=== PATIENT | female | born 1975 | race Caucasian/White ===

== ENCOUNTER 2016-09-07 10:36 | Emergency (ER) | payer MEDICAID, OTHER ==
[~2016-09-07] VITALS: Wt 77.5 kg
[2016-09-07 12:15] LABS: ADD UMIC YES; URINE BILIRUBIN (Dip) NEGATIVE (NEGATIVE); URINE BLOOD (Dip) 3+ (NEGATIVE); URINE COLOR LT. YELLOW (YELLOW); URINE GLUCOSE (Dip) NEGATIVE (NEGATIVE); URINE KETONES (Dip) TRACE (NEGATIVE); URINE LEUKOCYTE ESTERASE (Dip) TRACE (NEGATIVE); URINE NITRITE (Dip) NEGATIVE (NEGATIVE); URINE TOTAL PROTEIN (Dip) NEGATIVE (NEGATIVE); URINE UROBILINOGEN (Dip) 0.2 E.U./dL (0.1-1.0)
[2016-09-07 12:21] LABS: BASOPHIL # 0.1 10^3/ul (0.0-0.1); BASOPHILS % 0.6 % (0.0-2.0); EOSINOPHILS # 0.1 10^3/ul (0.0-0.5); EOSINOPHILS % 1.2 % (0.0-7.0); HEMATOCRIT 42.5 % (37.0-47.0); HEMOGLOBIN 14.5 g/dl (12.0-16.0); LYMPHOCYTES # 3.1 10^3/ul (0.8-2.9); LYMPHOCYTES % 24.9 % (15.0-51.0); MEAN CORPUSCULAR HEMOGLOBIN 28.3 pg (29.0-33.0); MEAN CORPUSCULAR VOLUME 83.1 fl (82.0-101.0); MEAN PLATELET VOLUME 8.9 fl (7.4-10.4); MONOCYTE # 0.5 10^3/ul (0.3-0.9); MONOCYTES % 4.2 % (0.0-11.0); NEUTROPHIL # 8.5 10^3/ul (1.6-7.5); NEUTROPHILS % 69.1 % (39.0-77.0); PLATELET COUNT 284 10^3/UL (140-440); RED BLOOD COUNT 5.11 10^6/ul (4.20-5.40); RED CELL DISTRIBUTION WIDTH 13.2 % (11.5-14.5); UNCORRECTED WBC 12.3 10^3/ul (4.8-10.8); WHITE BLOOD COUNT 12.3 10^3/ul (4.8-10.8)
[2016-09-07 12:25] LABS: BACTERIA,URINE MODERATE
[2016-09-07 12:31] LABS: CONDITION 1
--- NOTE | 2016-09-07 12:36 | RADRPT ---
PROCEDURE: US OB. CLINICAL INDICATION: Vaginal bleeding TECHNIQUE: Transabdominal and transvaginal views of the pelvis are available for review. COMPARISON: No prior studies are available for comparison. FINDINGS: There is a 1.6 x 1.9 cm hypoechoic mass in the anterior uterus, suspicious for a fibroid. There is a single intrauterine gestation with the crown-rump length measuring 0.9 cm, corresponding to a gestational age of 6 weeks and 6 days. The heart tones are absent. The ovaries are normal in size and echogenicity. Normal Doppler flow is identified in both ovaries. The right ovary measures 2.2 x 1.6 x 1.5 cm. The left ovary measures 2.6 x 1.7 x 1.3 cm. There is no free fluid. RPTAT: AA IMPRESSION: Single intrauterine with an estimated gestational age of 6 weeks and 6 days, based on ultr asound measurements. heart tones are absent, suspicious for demise. Close follow-up ultrasound and HCG is recommended. Small anterior uterine fibroid. .Neno Ruggiero MD, MD Date Time Electronically viewed and signed by .Neno Ruggiero MD, on 09/07/2016 12:36 .S/
[2016-09-07] MEDS ORDERED: CEPH-443 PO (13:11)
--- NOTE | 2016-09-07 13:42 | ERD ---
ER Documentation Chief Complaint Date/Time DATE: 09/07/16 TIME: 13:37 Chief Complaint VAG BLEED SINCE LAST NIGHT. 5 WKS PREG. LOW ABDOMINAL CRAMPING. HPI Patient is a 40-year-old female who is who presents to the ED with vaginal bleeding and pelvic pain. She states that she started bleeding 2 days ago. Light bleeding and has used 1 pad for the whole day. She states she has an OB doctor that she is following. She states her LNMP was 06/21/2016. Denies dysuria or urgency. Denies abdominal pain, nausea, vomiting or diarrhea. Denies leg pain or swelling. Denies chest pain, shortness of breath or difficulty breathing. Denies headache or dizziness. No other complaints. ROS All systems reviewed and are negative except as per history of present illness. Medications Home Meds Active Scripts Cephalexin* (Keflex*) 500 Mg Capsule, 500 MG PO BID for 7 Days, CAP Prov:WILLIAM PAULA PA-C 09/07/16 Allergies Allergies: Coded Allergies: No Known Allergy (Verified Allergy, Unknown, 12/11/08) PMhx/Soc History of Surgery: Yes (casesarian section) Anesthesia Reaction: No Hx Neurological Disorder: No Hx Respiratory Disorders: No Hx Cardiac Disorders: No Hx Psychiatric Problems: No Hx Miscellaneous Medical Probl: No Hx Alcohol Use: No Hx Substance Use: No Hx Tobacco Use: No Smoking Status: Never smoker Physical Exam Vitals Vital Signs Date Time Temp Pulse Resp B/P Pulse Ox O2 Delivery O2 Flow Rate FiO2 09/07/16 10:38 98.6 84 20 123/78 100 Physical Exam GENERAL: Well-developed, well-nourished female. Appears in no acute distress. LUNG: Clear to auscultation bilaterally. No rhonchi, wheezing, rales or coarse breath sounds. HEART: Regular rate and rhythm. No murmurs, rubs or gallops. ABDOMEN: No scars, ecchymosis or rashes noted. Soft, nontender, and nondistended. Positive bowel sounds in all four quadrants. No rebound tenderness , no guarding. (-) McBurneys point tenderness. No CVA tenderness. BACK: No midline tenderness. Extremities: Equal pulses bilaterally. No peripheral clubbing, cyanosis or edema. No unilateral leg swelling. NEUROLOGIC: Alert and oriented. Moving all four extremities. 5/5 strength in all extremities. Normal speech. Steady gait. SKIN: Normal color. Warm and dry. No rashes or lesions. Capillary refill < 2 seconds Result Diagram: 09/07/16 1158 Results 24 hrs Laboratory Tests Test 09/07/16 11:51 09/07/16 11:58 Urine Bacteria MODERATE Urine Bilirubin NEGATIVE Urine Clarity CLEAR Urine Color LT. YELLOW Urine Epithelial Cells MODERATE Urine Glucose NEGATIVE% Urine Hemoglobin 3+ Urine Ketones TRACE Urine Leukocyte Esterase TRACE Urine Microscopic RBC 2-5/HPF Urine Microscopic WBC 0-2/HPF Urine Nitrite NEGATIVE Urine Specific [place] 1.010 Urine Total Protein NEGATIVE Urine Urobilinogen 0.2 E.U./dL Urine pH 6.0 Basophils # 0.110^3/ul Basophils % 0.6% Beta HCG, Quantitative 5299.2mIU/ml Blood Morphology Comment Eosinophils # 0.110^3/ul Eosinophils % 1.2% Hematocrit 42.5% Hemoglobin 14.5g/dl Lymphocytes # 3.110^3/ul Lymphocytes % 24.9% Mean Corpuscular Hemoglobin 28.3pg Mean Corpuscular Hemoglobin Concent 34.0g/dl Mean Corpuscular Volume 83.1fl Mean Platelet Volume 8.9fl Monocytes # 0.510^3/ul Monocytes % 4.2% Neutrophils # 8.510^3/ul Neutrophils % 69.1% Nucleated Red Blood Cells # 0.010^3/ul Nucleated Red Blood Cells % 0.0/100WBC Platelet Count 13822^3/UL Red Blood Count 5.1110^6/ul Red Cell Distribution Width 13.2% White Blood Count 12.310^3/ul Procedures/MDM ER COURSE: I kept the patient and/or family informed of laboratory and diagnostic imaging results throughout the emergency room course. EKG, MONITORS, & DIAGNOSTIC IMAGING: [place] [id number] Radiology Main Line: [phone] DIAGNOSTIC IMAGING REPORT Patient: AGGIE TSAI : 1975 Age: 40 Sex: F MR #: [id number] DOS: 09/07/16 1145 Ordering MD: WILLIAM APULA PA-C Location: [facility] Room/Bed: PROCEDURE: US OB. CLINICAL INDICATION: Vaginal bleeding TECHNIQUE: Transabdominal and transvaginal views of the pelvis are available for review. COMPARISON: No prior studies are available for comparison. FINDINGS: There is a 1.6 x 1.9 cm hypoechoic mass in the anterior uterus, suspicious for a fibroid. There is a single intrauterine gestation with the crown-rump length measuring 0.9 cm, corresponding to a gestational age of 6 weeks and 6 days. The heart tones are absent. The ovaries are normal in size and echogenicity. Normal Doppler flow is identified in both ovaries. The right ovary measures 2.2 x 1.6 x 1.5 cm. The left ovary measures 2.6 x 1.7 x 1.3 cm. There is no free fluid. RPTAT: AA IMPRESSION: Single intrauterine with an estimated gestational age of 6 weeks and 6 days, based on ultrasound measurements. heart tones are absent, suspicious for demise. Close follow-up ultrasound and HCG is recommended. Small anterior uterine fibroid. .Neno Ruggiero MD, MD Date Time Electronically viewed and signed by .Neno Ruggiero MD, MD on 09/07/2016 12: 36 .S/ CC: WILLIAM PAULA PA-C LAB INTERPRETATION: CBC showed no evidence of severe anemia. WBC of 12.3. UA showed no evidence of , nitrites or hematuria, showed trace leukocytes. C Rh: B+ MEDICAL DECISION MAKING: This is a 40-year-old female who presents with and vaginal bleeding and pelvic pain. Vital signs were reviewed. Patient is afebrile. Patient is not hypoxic. Patient is not toxic or ill-appearing. Patient's ultrasound is read by radiologist shows a single intrauterine with an estimated gestational age of 6 weeks and 6 days. heart tones are absent suspicious for demise. Small anterior uterine fibroid. Low suspicion for ovarian torsion, PID, tuboovarian abscess, ectopic , bowel obstruction, pyelonephritis, UTI, appendicitis, cervicitis, septic , molar , HELLP syndrome, preeclampsia, eclampsia, placenta previa, placenta abruptia. DISCHARGE: At this time, patient is stable for discharge and outpatient management with no new complaints during the ER course. Patient was sent home with Keflex and to follow-up with her OB doctor and to return to the ER in 2 days for recheck of ultrasound and beta hCG levels.. Patient will be discharged home with instructions to recheck for new or worsening symptoms such as fever, nausea, weakness, LOC and to follow up with primary care in the next 1-2 days. Patient was advised to return to the ER for any new or worsening symptoms. Plan was discussed and patient and/or family understands and agrees. Home instructions were given. Departure Diagnosis: Primary Impression: Vaginal bleeding in patient at less than 20 weeks ges... Condition: Stable Patient Instructions: Bleeding During Early Referrals: DOCTOR,NOT ON STAFF (PCP) Additional Instructions: Llame al doctor MAANA y melvin judy JOELLEN PARA DENTRO DE 1-2 TAYLOR.Dgale a la secretaria que nosotros le instruimos hacer esta joellen.Avise o llame si vizcarra condicin se empeora antes de la joellen. Regresa aqui si peor o no mejor. Sigue aqui en 2 taylor para rechequar vizcarra ultrasonida y niveles de hormone. WILLIAM PAULA PA-C Sep 07, 2016 13:42
== END 2016-09-07 13:25 | disposition home or self-care (01) ==
LOC: FTE 10:36
DX: O20.9 Hemorrhage in early pregnancy, unspecified (principal); R10.2 Pelvic and perineal pain; Z3A.01 Less than 8 weeks gestation of pregnancy
CPT/HCPCS: 36415; 76801; 76817; 81001; 81003; 84702; 85025; 86900; 86901; Z7502

== ENCOUNTER 2019-03-04 07:42 | Day surgery (SDC) | payer MEDICAID, OTHER ==
[~2019-03-04] VITALS: Ht 149.9 cm; Wt 78.4 kg
[2019-03-04] VITALS (11 sets, daily range): BP systolic 96–113; BP diastolic 58–74; PULSE 65–102; RESP 15–24; Ht 149.9 cm; Wt 78.4 kg
[~2019-03-04 07:42] MED LIST: CEPH-443 PO
[2019-03-04] MEDS ORDERED: CEFAZOLIN 2 GM/50 ML (PMX) 50 ML IVPB ONE (08:00)
[2019-03-04] MEDS ORDERED: SOD CHLORIDE 0.9% 1,000 ML IV SCH (08:00)
--- NOTE | 2019-03-04 12:25 | PREAC ---
Date/Time of Note Date/Time of Note DATE: 03/04/19 TIME: 12:24 Anesthesia Eval and Record Evaluation Time Pre-Procedure Interview DATE: 03/04/19 TIME: 12:24 Age 43 Sex female NPO: 8 hrs Preoperative diagnosis right axillary mass Planned procedure excision of right axillary mass Past Medical History Past Medical History: Includes Cardio: HTN Musculoskeletal: Osteoarthritis GI: Obesity Surgery & Anesthesia Issues No known issue Meds Anticoagulation: No Beta Emelia within 24 hr: No Reason Beta Emelia not given: Pt. not on B-Emelia Discontinued Scripts Cephalexin* (Keflex*) 500 Mg Capsule, 500 MG PO BID for 7 Days, CAP Prov:WILLIAM PAULA PA-C 09/07/16 Current Medications Sodium Chloride 1,000 ml @ 75 mls/hr [id number] IV Last administered on 03/04/19at 10:50; Admin Dose 75 MLS/HR; Start 03/04/19 at 08:00 Meds reviewed: Yes Allergies Coded Allergies: No Known Allergy (Verified , 03/04/19) Allergies Reviewed: Yes Labs/Studies Labs Reviewed: Reviewed by anesthesiologist test: Negative Pre-procedure Exam Last vitals Vital Signs Date Temp Pulse Resp B/P (MAP) Pulse Ox O2 O2 Flow FiO2 Time Delivery Rate 03/04/19 97.6 65 16 113/ 99 Room Air 10:42 Airway: Adequate mouth opening, Adequate thyromental dist Mallampati: Mallampati II Teeth: Normal Lung: Normal Heart: Normal ASA Physical Status ASA physical status: 2 Emergency: None Planned Anesthetic General/MAC: LMA Planned Pain Management Parenteral pain med Pre-operative Attestations Prior to commencing anesthesia and surgery, the patient was re-evaluated, there was verification of: *The patient's identity *The results of appropriate recent lab work and preoperative vital signs *The above evaluation not changing prior to induction *Anesthetic plan, risk benefits, alternative and complications discussed with patient/family; questions answered; patient/family understands, accepts and wishes to proceed. MERCED OVIEDO Mar 04, 2019 12:25
[2019-03-04] MEDS ORDERED: BUPIVACAINE 0.25%/EPI (SDV) 10 ML INJ ONE (12:34)
[2019-03-04] MEDS ORDERED: BUPIVACAINE 0.5%/EPI (SDV) 30 ML INJ ONE (12:34)
[2019-03-04] MEDS ORDERED: PROPOFOL 100 ML ONE (12:46)
[2019-03-04] MEDS ORDERED: LIDOCAINE 2% (SDV) 5 ML INJ ONE (12:48)
[2019-03-04] MEDS ORDERED: CEFAZOLIN 1 GM INJ ONE (13:10)
[2019-03-04] MEDS ORDERED: ONDANSETRON 4 MG INJ ONE (13:25)
[2019-03-04] MEDS ORDERED: DEXAMETHASONE 4 MG/ML 5 ML INJ ONE (13:25)
[2019-03-04] MEDS ORDERED: ONDANSETRON 4 MG INJ IV PRN ×2 (14:00→14:30)
[2019-03-04] MEDS ORDERED: KETOROLAC 30 MG INJ IV PRN ×2 (14:00→14:30)
[2019-03-04] MEDS ORDERED: IBUPROFEN 600 MG TAB PO PRN (14:00)
--- NOTE | 2019-03-04 14:05 | OPR ---
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 She presented to the office as a mass in the right axillary tail which she had been followed with ultrasound had showed rapid increase in size. She reported pain in the area. The patient had an ultrasound which showed increase in size of the axillary tail mass to 2.2 cm. There was also a second mass identified just adjacent to it. Given the above findings the patient was scheduled for elective excision of the right breast masses x2 with wire needle localization for complete excision and definitive pathological diagnosis. All risks and benefits of the procedure including, but not limited to: Wound infection, excessive bleeding, postoperative seroma/hematoma formation, possible need for subsequent surgeries, loss of nipple areolar sensation, etc. were explained to the patient in full detail. She fully understood and wished to proceed with the procedure. Informed consent was obtained. Procedure Description The patient was brought to the operating room and placed supine on the operating table. Bilateral sequential compression devices were placed on both lower extremities. A dose of broad-spectrum perioperative intravenous antibiotics was given. Patient had undergone preoperative wire needle localization. After the induction of smooth general anesthesia the patient's right breast and chest wall were prepped and draped in standard surgical fashion. After performance of the surgical timeout 0.5% Marcaine with epinephrine was injected around the area of the incision. An incision was then made using a 15 blade scalpel from approximately the 7:00 location to the 9:00 location of the right breast in the upper outer quadrant, 9 cm from the areolar border. Incision was carried down through the skin and subcutaneous tissues to the level of breast tissue using sharp dissection and Bovie electrocautery. Flaps were then raised circumferentially. The wire needle was identified. Its external portion was cut. The wire was then delivered through the skin into the field. Circumferential core of tissue was then dissected around the wire down to the level of the chest wall. The specimen was then transected at its base. Marking sutures were used to joselyn the superior and medial aspects. Specimen was then passed off the field. Intraoperative mammography showed the specimen to contain the wire needle, both of the masses and the prior biopsy clips in their entirety. At this point hemostasis was inspected for and noted to be total. The wound cavity was irrigated and the irrigant returned clear. The wound was then closed in layers using interrupted 3-0 Vicryl sutures for the deep breast tissue. The dermal layer was also reapproximated with interrupted 3-0 Vicryl sutures. The skin was then reapproximated using a running 4-0 Monocryl suture in subcuticular fashion. Incision was cleaned and Dermabond was applied. The patient was then awoken from anesthesia and transferred to the recovery room in stable condition. All counts were correct at the end of the case 2. LOLI JORDAN MD Mar 04, 2019 14:05
[2019-03-04] MEDS ORDERED: MEPERIDINE 25 MG INJ ONE (14:13)
--- NOTE | 2019-03-04 14:14 | PAC ---
Date/Time of Note Date/Time of Note DATE: 03/04/19 TIME: 14:14 Post-Anesthesia Notes Post-Anesthesia Note Last documented vital signs Vital Signs Date Temp Pulse Resp B/P (MAP) Pulse Ox O2 O2 Flow FiO2 Time Delivery Rate 03/04/19 97.6 65 16 113/ 99 Room Air 1414 Activity: WNL Respiratory function: WNL Cardiovascular function: WNL Mental status: Baseline Pain reasonably controlled: Yes Hydration appropriate: Yes Nausea/Vomiting absent: Yes MERCED OVIEDO Mar 04, 2019 14:14
[2019-03-04] MEDS ORDERED: EPHEDrine 25 MG/5 ML SYG IV PRN (14:30)
[2019-03-04] MEDS ORDERED: FENTAnyl 50 MCG/ML VIAL IV PRN ×3 (14:30)
[2019-03-04] MEDS ORDERED: ALBUTEROL 0.083% (NEB) 2.5 MG/3 ML AMP HHN PRN (14:30)
[2019-03-04] MEDS ORDERED: LABETALOL HCL 20MG INJ IV PRN (14:30)
[2019-03-04] MEDS ORDERED: MEPERIDINE 25 MG INJ IV PRN (14:30)
[2019-03-04] MEDS ORDERED: MIDAZOLAM 1 MG/ML 2 ML INJ IV PRN (14:30)
[2019-03-04] MEDS ORDERED: hydrALAzine 20 MG INJ IV PRN (14:30)
[2019-03-04] MEDS ORDERED: METOCLOPRAMIDE 10 MG INJ IV PRN (14:30)
[2019-03-04] MEDS ORDERED: DIPHENHYDRAMINE 50 MG INJ IV PRN (14:30)
[2019-03-04] MEDS ORDERED: OXYCODONE/ACETAMINOPHEN (5/325) TAB PO PRN ×2 (14:30)
== END 2019-03-04 16:13 | disposition home or self-care (01) ==
LOC: SUR 07:42 → SDS 07:42 → SUR 16:13
PROVIDERS: ATTEND Surgery
DX: D24.1 Benign neoplasm of right breast (principal); I10 Essential (primary) hypertension
CPT/HCPCS: 19120; 84703; 88307; J0690; J1100; J2175; J2405; J3010; Z7512; Z7610